=== PATIENT | female | born 1985 | race Caucasian/White ===

== ENCOUNTER 2017-11-27 08:05 | Outpatient (CLI) | payer OTHER ==
--- NOTE | 2017-11-27 11:46 | MRI ---
MRI OF THE LEFT FOREFOOT WITHOUT IV CONTRAST: INDICATION: Foot pain resulting from running injury 10 weeks ago, with no improvement with conservative therapy. TECHNIQUE: Multiplanar, multisequence MR images were obtained of the left mid foot and forefoot without IV contr ast. A surface marker was placed in the region of pain. FINDINGS: There is a nondisplaced healing stress fracture involving the distal shaft of the 2nd metatarsal with surrounding bone marrow edema involving the metatarsal shaft. There is surrounding soft tissue infl ammation involving intrinsic foot musculature and subcutaneous tissues surrounding the 2nd metatarsal . No additional stress injury is evident. The Lisfranc alignment is within normal limits. The [place] ranc ligament is intact. Intrinsic foot musculature appears within normal limits. The plantar fasci a is normal-appearing. IMPRESSION: Healing nondisplaced stress fracture involving the distal 2nd metatarsal shaft with surrounding edema . POS: [facility]
== END 2017-11-27 08:06 | disposition home or self-care (01) ==
LOC: MRI 08:05
PROVIDERS: ATTEND Family Medicine
DX: M84.375D Stress fracture, left foot, subsequent encounter for fracture with routine healing (principal); R60.0 Localized edema